=== PATIENT | male | born 1995 | race Caucasian/White ===

== ENCOUNTER 2017-01-30 10:48 | Emergency (ER) | payer OTHER ==
[2017-01-30 11:01] VITALS: BMI 23.9
[2017-01-30] MEDS ORDERED: Alum-Mag Hydrox-Simethicone Susp (30 mL) PO STA (11:24)
[2017-01-30] MEDS ORDERED: Alum-Mag Hydrox-Simethicone Susp (30 mL) ONE (11:29)
--- NOTE | 2017-01-30 11:45 | RAD ---
HISTORY: epigastric/chest burning COMPARISON: None available. TECHNIQUE: Chest PA and lateral FINDINGS: LUNGS: No focal consolidation. Please note that chest x-ray has limited sensitivity for the detection of pulmonary masses. PLEURA: No significant pleural effusion identified. No definite pneumothorax . CARDIOVASCULAR: The cardiomediastinal silhouette appears within normal limits of size. OSSEOUS STRUCTURES: No acute osseous abnormality identified. VISUALIZED UPPER ABDOMEN: Unremarkable. OTHER FINDINGS: None. IMPRESSION: No focal consolidation, significant pleural effusion, or definite pneumothorax identified.
--- NOTE | 2017-01-30 11:49 | C.PDOC ---
History Of Present Illness Patient presents to ED c/o epigastric pain described as burning that radiates up into his chest, associated with nausea and vomiting since yeserday. He denies cough, fever, SOB, falls/injuries, rash. Time Seen by Provider: 01/30/17 11:06 Chief Complaint (Nursing): Chest Pain History Per: Patient History/Exam Limitations: no limitations Onset/Duration Of Symptoms: Days (2) Current Symptoms Are (Timing): Still Present Severity: Mild Quality: Burning, "Pain" Associated Symptoms: Nausea Past Medical History Reviewed: Historical Data, Nursing Documentation, Vital Signs Vital Signs: Last Vital Signs Temp 98.4 F 01/30/17 12:01 Pulse 63 01/30/17 12:01 Resp 20 01/30/17 12:01 BP 133/80 01/30/17 12:01 Pulse Ox 63 L 01/30/17 12:01 - Medical History PMH: No Chronic Diseases Surgical History: No Surg Hx Family History: States: No Known Family Hx - Social History Hx Alcohol Use: Yes Hx Substance Use: No - Immunization History Hx Tetanus Toxoid Vaccination: No Hx Influenza Vaccination: No Hx Pneumococcal Vaccination: No Review Of Systems Except As Marked, All Systems Reviewed And Found Negative. Constitutional: Negative for: Fever, Chills Cardiovascular: Negative for: Chest Pain Respiratory: Negative for: Cough, Shortness of Breath Gastrointestinal: Positive for: Nausea, Vomiting, Abdominal Pain. Negative for : Diarrhea Genitourinary: Negative for: Dysuria, Hematuria Physical Exam - Physical Exam Appears: Well, Non-toxic, No Acute Distress Skin: No Rash Head: Normacephalic Eye(s): bilateral: Normal Inspection Oral Mucosa: Moist Cardiovascular: Rhythm Regular Respiratory: Normal Breath Sounds, No Rales, No Rhonchi, No Wheezing Gastrointestinal/Abdominal: Bowel Sounds, Soft, Tenderness (mild epigastric TTP , (-) Herrera's, (-) McBurney's) Back: Normal Inspection, No CVA Tenderness Neurological/Psych: Oriented x3 ED Course And Treatment ECG: Interpreted By Me, Viewed By Me (NSR 70 bpm, normal axis, no acute ST/T wave changes) ECG Interpretation: Normal O2 Sat by Pulse Oximetry: 99 (RA) Pulse Ox Interpretation: Normal - Radiology CXR: Interpreted by Me, Viewed By Me CXR Interpretation: Yes: No Acute Disease. No: Infiltrates Progress Note: CXR and EKG ordered and reviewed. Patient given PO Maalox plus. Reevaluation Time: 11:50 Reassessment Condition: Improved (On reassessment, patient states he feels better, pain has resolved. On exam, abdomen is soft and nontender. Rx given for pepcid, and patient instructed to follow up with PMD/clinic in 1-2 days. He understands he should return to ED if symptoms worsen.) Disposition Counseled Patient/Family Regarding: Studies Performed, Diagnosis, Need For Followup, Rx Given - Disposition Referrals: [facility] [Outside] Disposition: HOME/ ROUTINE Disposition Time: 11:50 Condition: STABLE Additional Instructions: SEGUIMIENTO CON APONTE MDICO / CLNICA EN 1-2 HERNÁNDEZ USE MEDICAMENTOS SEGN SEA NECESARIO EVITE ALIMENTOS PICANTES O CIDOS REGRESE AL AIDE DE EMERGENCIA SI LOS SNTOMAS EMPEORAN Prescriptions: Famotidine [Pepcid] 20 mg PO BID PRN #20 tab PRN Reason: abdominal Instructions: Gastroesophageal Reflux Disease (ED) Forms: [facility] (Citizen Of [place]) Print Language: [place] - Clinical Impression Clinical Impression: Dyspepsia
[2017-01-30 12:02] VITALS: BP 133/80; PULSE 63; RESP 20; TEMP 98.4
[2017-02-02 10:49] VITALS: O2SAT 99
--- NOTE | 2017-02-04 03:22 | CARD ---
APPROVED REPORT EKG Measurement Heart [id number] <Conclusion> Normal sinus rhythm Minimal voltage criteria for LVH, may be normal variant Borderline ECG
== END 2017-01-30 12:16 | disposition home or self-care (01) ==
LOC: C.ER 10:48
DX: R10.13 Epigastric pain (principal)